=== PATIENT | male | born 1970 | race Caucasian/White ===

== ENCOUNTER → 2017-02-02 | Outpatient (CLI) | payer BC ==
[~2017-02-02] MED LIST: GADOBUTROL 10 MMOL/10 ML PFS ONE
== END | disposition home or self-care (01) ==
LOC: CFH 10:22
PROVIDERS: ATTEND Physician Assistant
DX: R51 Headache (principal); E78.2 Mixed hyperlipidemia; E55.9 Vitamin D deficiency, unspecified; F06.31 Mood disorder due to known physiological condition with depressive features; F41.1 Generalized anxiety disorder
CPT/HCPCS: 70553; A9585

== ENCOUNTER → 2017-03-23 | Outpatient (CLI) | payer BC | END | disposition home or self-care (01) | LOC: CFH 07:11 | PROVIDERS: ATTEND Physician Assistant | DX: M47.896 Other spondylosis, lumbar region (principal); E06.3 Autoimmune thyroiditis; E78.2 Mixed hyperlipidemia; E55.9 Vitamin D deficiency, unspecified; F41.1 Generalized anxiety disorder; F06.31 Mood disorder due to known physiological condition with depressive features | CPT/HCPCS: 72040 ==